=== PATIENT | female | born 1950 | race Caucasian/White ===

== ENCOUNTER 2020-02-28 09:42 | Outpatient (CLI) | payer MEDICARE, MEDICAID, SELFPAY ==
--- NOTE | 2020-02-28 09:51 | MM_ITS ---
WS: [id number] BILATERAL SCREENING DIGITAL MAMMOGRAM WITH CAD HISTORY: SCREENING COMPARISON: 01/29/2019 and 02/13/2017 Bilateral CC and MLO views submitted. Computer aided detection analyzed. Breast composition: There are scattered areas of fibroglandular density. No suspicious masses, microc alcifications or architectural distortion. Benign calcifications centrally in each breast. MM/[place] [id number] IMPRESSION: BI-RADS: 2-Benign FOLLOW UP: 1 Year Follow-up
== END 2020-02-28 09:43 | disposition home or self-care (01) ==
LOC: RADSHAW 09:50
PROVIDERS: PCP Physician Assistant; Visit Provider Physician Assistant
DX: Z12.31 Encounter for screening mammogram for malignant neoplasm of breast (principal)
CPT/HCPCS: 77067

== ENCOUNTER 2020-03-15 13:41 | Outpatient (CLI) | payer MEDICARE, MEDICAID, SELFPAY ==
--- NOTE | 2020-03-15 | XR_ITS ---
WS: [id number] Bone mineral density performed on a Nephera, 03/15/2020 Clinical data: POST MENOPAUSAL Findings: Measurement of the bone mineral density of the left forearm reveal that the radius was 0.725 g/sq cm. Young adult score was -1.7. Measurement of the left hip reveals a bone mineral density of 0.834 g/cm2 with a young adult T score of -1.4. Measurement of the right hip reveals the bone mineral density of 0.794 g/cm2 for young adult T score of -1.7. XR/XR DEXA axial skeleton* [id number] Impression: 1. 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 The bone mineral density has diminished compared to the prior examinations.
== END 2020-03-15 13:42 | disposition home or self-care (01) ==
LOC: RADWPI 13:48
PROVIDERS: PCP Physician Assistant; Visit Provider Physician Assistant
DX: Z78.0 Asymptomatic menopausal state (principal); M85.89 Other specified disorders of bone density and structure, multiple sites
CPT/HCPCS: 77080

== ENCOUNTER 2021-03-28 10:31 | Outpatient (CLI) | payer MEDICARE, MEDICAID, SELFPAY ==
--- NOTE | 2021-03-28 10:39 | MM_ITS ---
WS: [id number] Exam: [place] [id number] Date/Time of Exam: 03/28/2021 10:44 AM Reason For Exam: SCREENING VIEWS: MLO and CC views both breasts. Comparison made with prior exam of 02/13/2017, 01/29/2019 and 02/28/2020. Findings: There was no sign of mass, architectural distortion or suspicious calcification in either breast. Sc attered fibroglandular densities MM/[place] [id number] Impression: BI-RADS: 2-Benign FOLLOW-UP: 1 Year Follow-up This mammogram was also analyzed by the Computer Aided Detection System R2 Imag e Data Coder Operator.
== END 2021-03-28 10:32 | disposition home or self-care (01) ==
LOC: RADSHAW 10:38
PROVIDERS: PCP Physician Assistant; Visit Provider Physician Assistant
DX: Z12.31 Encounter for screening mammogram for malignant neoplasm of breast (principal)
CPT/HCPCS: 77067

== ENCOUNTER 2022-01-18 10:09 | Outpatient (CLI) | payer MEDICARE, MEDICAID, SELFPAY ==
--- NOTE | 2022-01-18 10:23 | MR_ITS ---
WS: [id number] MRI LUMBAR SPINE NONCONTRAST HISTORY: LOW BACK PAIN POTENTIALLY ASSOCIATED W/RADICULOPATHY COMPARISON: Prior lumbar spine radiograph 11/07/2021. TECHNIQUE: Sagittal and axial multisequence imaging is submitted. Marked increase in the thoracic kyphosis. Hardware in the mid to lower thoracic spine. Moderate increase in the lumbar lordosis. L4 anterolisthesis by 2 mm. No marrow edema or fracture. Conus terminates normally at L1. L1-L2: Mild disc bulging with no stenosis. L2-L3: Mild annular disc bulging. Mild encroachment upon the ventral thecal sac. Mild facet and ligam entum flavum hypertrophy. There is very mild bilateral foraminal narrowing. L3-L4: No stenosis. Mild facet arthritis. L4-L5: Mild annular disc bulging with ligamentum flavum hypertrophy and facet arthritis. Encroachment into the central canal. There is a tiny central disc protrusion with annular fissure. Mild central a nd bilateral subarticular recess stenosis. L5-S1: Mild disc space narrowing. Focal area of decreased signal on the T2 sequences extends into the RIGHT subarticular recess. This is contiguous with the disc and most likely represents an extruded d isc extending caudad to the disc space. Disc extends over a length of 1.4 cm and transversely by 0.9 cm. There is significant contact and displacement of the RIGHT S1 nerve root and the thecal sac. Mild osteophytic ridging with mild foraminal narrowing. Bilateral renal cysts. MR/MR lumbar spine wo con* [id number] IMPRESSION: 1. 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 Disc measures 1.4 cm x 0.9 cm and causes displacement of the RIGHT S1 nerve ro ot. 2. Mild central, bilateral subarticular recess stenosis at L4-5. 3. Mild increase in the lumbar lordosis.
== END 2022-01-18 10:10 | disposition home or self-care (01) ==
LOC: RAD 10:11
PROVIDERS: PCP Physician Assistant; Visit Provider Family Medicine
DX: M54.50 Low back pain, unspecified (principal); M51.26 Other intervertebral disc displacement, lumbar region
CPT/HCPCS: 72148

== ENCOUNTER 2022-04-08 10:35 | Outpatient (CLI) | payer MEDICARE, MEDICAID, SELFPAY ==
--- NOTE | 2022-04-08 10:41 | MM_ITS ---
WS: [id number] BILATERAL SCREENING DIGITAL TOMOSYNTHESIS MAMMOGRAM WITH CAD HISTORY: SCREENING COMPARISON: 03/20/2021 and 02/28/2020 Bilateral CC and MLO views with tomosynthesis and synthetic mammography submitted. Computer aided det ection analyzed. Breast composition: There are scattered areas of fibroglandular density. No suspicious masses, microc alcifications or architectural distortion. Benign calcifications in each breast. MM/[place] [id number] IMPRESSION: BI-RADS: 2-Benign FOLLOW UP: 1 Year Follow-up
== END 2022-04-08 10:36 | disposition home or self-care (01) ==
LOC: RAD 10:36
PROVIDERS: PCP Physician Assistant; Visit Provider Physician Assistant
DX: Z12.31 Encounter for screening mammogram for malignant neoplasm of breast (principal)
CPT/HCPCS: 77063; 77067

== ENCOUNTER 2022-08-06 09:47 | Outpatient (CLI) | payer MEDICARE, MEDICAID, SELFPAY ==
--- NOTE | 2022-08-06 | ECG_ITS ---
[facility] Test Date: 2022-08-06 Pat Name: Jennifer Red Department: Room: Gender: Female [employer] Ticket Taker: Jenny Reed : 1950 Requested By: Polina Walton Order Number: [id number] Giovanny MD: Wilfredo Woods M.D. Interpretive Statements NAME OF STUDY: LEXISCAN SESTAMIBI STRESS TEST INDICATION: [Chest Pain, ] Procedure: At the baseline, the blood pressure was 145/84 mmHg with a heart rate of 56 bpm. The electrocardiogram showed normal sinus rhythm, normal axis with normal ST and T's and LVH changes. The Lexiscan was infused over a period of 20 seconds. A total of 0.4 mg of Lexiscan was infused. The stress phase was continued for a total of 5 minutes. Heart rate was at the end of stress phase was 66 bpm and a blood pressure of 134/69 mmHg. The EKG at the peak infusion revealed normal sinus rhythm with no significant ST-T wave changes. Sestamibi was injected 20 seconds after the Lexiscan infusion. Blood pressure at the end of recovery phase was 142/68 mmHg with a heart rate of 68 bpm. Conclusion: 1. Normal EKG response to Lexiscan infusion 2. No Lexiscan induced chest pain or cardiac arrhythmia. 3. Normal blood pressure and heart rate response. 4. Sestamibi/sestamibi perfusion scan pending; see separate report. Electronically Signed On 08-25-2022 13:18:03 WELDER PIPE MAKING by Wilfredo Woods M.D. [email or web address]
[2022-08-06 09:55] VITALS: BMI 25.3
--- NOTE | 2022-08-06 10:20 | NMCV_ITS ---
NM linden perf SPECT r/s* [id number] Jennifer Red Age: 71 Gender: F : 1950 Exam Date: 08/06/2022 11:28 Ordering Phys: Polina Hayden Technologist: HATTIE English Exam Location: [facility] Indications: ANGINA PECTORIS STRESS TEST Please see separate stress test report in [facility] for full findings IMAGE PROTOCOL Rest/Stress 1 Lexiscan Day Radiopharmaceutical Dose (mCi) Administration Site Administered by Rest: Tc-99m 10.9 IV HATTIE English Sestamibi Stress:Tc-99m 32.6 IV Sohna Wells, HATTIE Sestamibi Rest: 06-Aug-2022 60 Discovery 630 Stress: 06-Aug-2022 30 Discovery 630 0.4mg Lexiscan. Supine position only as patient was unable to lay prone. SPECT RESULTS Technical Quality: Excellent Raw Data Analysis: Normal Image Corrections: No attenuation or motion correction applied Summed Stress Score: 0 Summed Rest Score: 0 Summed Difference Score: 0 PERFUSION FINDINGS There is a small in size, fixed perfusion defect in apical lateral wall. 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 No evidence of ischemia. FUNCTIONAL RESULTS (calculated via Gated SPECT) Stress Image LV EF (%): 74 Stress EDV (mL):81 TID: 0.88 Stress ESV (mL):21 FUNCTIONAL FINDINGS: There is normal left ventricular systolic function. IMPRESSIONS 1. 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 No significant degree of ischemia. 2. LV systolic function is normal. Wilfredo Woods MD (Electronically Signed) Final Date: 06 August 2022 16:33 S
[2022-08-06] MEDS: regadenoson 0.4 Mg/5 ml Syringe IVP (12:05)
[2022-08-06 13:17] VITALS: BP 174/91; PULSE 81
== END 2022-08-06 09:48 | disposition home or self-care (01) ==
LOC: CDL 09:49
PROVIDERS: PCP Physician Assistant; Visit Provider Physician Assistant
DX: R07.9 Chest pain, unspecified (principal); I20.9 Angina pectoris, unspecified
CPT/HCPCS: 36415; 78452; 93017; 96374; A9500; J2785

== ENCOUNTER → 2022-09-12 10:00 | Outpatient (BNVA) | payer MEDICARE, MEDICAID, SELFPAY | PROVIDERS: PCP Physician Assistant; Visit Provider Internal Medicine Cardiovascular Disease | DX: R00.2 Palpitations (principal); R06.02 Shortness of breath; I10 Essential (primary) hypertension; E03.9 Hypothyroidism, unspecified; E78.5 Hyperlipidemia, unspecified | CPT/HCPCS: 99204 ==

== ENCOUNTER 2022-10-11 10:46 | Outpatient (CLI) | payer MEDICARE, MEDICAID, SELFPAY ==
--- NOTE | 2022-10-11 06:30 | USCV_ITS ---
Jennifer Red Age: 72 Gender: F : 1950 Exam Date: 10/11/2022 11:38 Ordering Phys: Tory Hughes MD ([email or web address]) Technologist: Exam Location: [facility] [place] Indication: abnormal rythym BP: 130 / 81 HR: 70 Rhythm: Sinus Technical Quality: Good MEASUREMENTS (Male / Female) Normal Values 2D ECHO LV Diastolic Diameter PLAX 3.8 cm 4.2 - 5.9 / 3.9 - 5.3 cm LV Systolic Diameter PLAX 2.1 cm IVS Diastolic Thickness 1.1 cm 0.6 - 1.0 / 0.6 - 0.9 cm IVS Systolic Thickness 1.5 cm LVPW Diastolic Thickness 1.1 cm 0.6 - 1.0 / 0.6 - 0.9 cm LVPW Systolic Thickness 1.3 cm LVOT Diameter 2.0 cm LV Ejection Fraction 2D Teich 77.4 % LV Ejection Fraction MOD 2C 76.3 % LV Ejection Fraction 2C AL 76.6 % LA Diameter 4.3 cm Aorta at Sinotubular Diameter 2.3 cm IVC Diameter 1.9 cm M-MODE Aortic Annulus Diameter 3.1 cm LA Ao Ratio MM 1.5 MV E Point Septal Separation 0.7 cm DOPPLER AV Peak Velocity 155.0 cm/s LVOT Peak Velocity 100.0 cm/s AV Area Cont Eq vti 2.3 cm squared AV Area Cont Eq pk 2.0 cm squared MV E' Velocity 6.0 cm/s TR Peak Velocity 339.0 cm/s TR Peak Gradient 46.0 mmHg RV Acceleration Time 0.2 s FINDINGS Left Ventricle Normal left ventricular cavity size. Mild left ventricular hypertrophy. Normal left ventricular systolic function. No regional wall motion abnormalities. Grade I/IV diastolic dysfunction (abnormal relaxation filling pattern), normal to mildly elevated filling pressures. Left ventricular ejection fraction is estimated at 70 %. Right Ventricle Normal right ventricular size and systolic function. Right Atrium The right atrium is normal in size. Left Atrium Moderately increased left atrial size. Mitral Valve Structurally normal mitral valve. Mild mitral valve regurgitation. Aortic Valve Structurally normal aortic valve without significant sclerosis or stenosis. There is no aortic regurgitation. Tricuspid Valve Structurally normal tricuspid valve without significant stenosis or regurgitation. Pulmonary artery systolic pressure is normal. Pulmonic Valve Pulmonic valve not well visualized. Pericardium Normal pericardium without effusion. Aorta Normal ascending aorta dimension. IVC The inferior vena cava appears normal. CONCLUSIONS Normal left ventricular cavity size. Mild left ventricular hypertrophy. Normal left ventricular systolic function. No regional wall motion abnormalities. Grade I/IV diastolic dysfunction (abnormal relaxation filling pattern), normal to mildly elevated filling pressures. Left ventricular ejection fraction is estimated at 70 %. Moderately increased left atrial size. Structurally normal mitral valve. Mild mitral valve regurgitation. There is no change from the previous study dated 05/17/2014 Dr. Magdaleno Barbosa MD (Electronically Signed) Final Date: 11 October 2022 16:09 S
== END 2022-10-11 10:47 | disposition home or self-care (01) ==
LOC: RAD 10:47
PROVIDERS: PCP Physician Assistant; Visit Provider Internal Medicine Cardiovascular Disease
DX: R06.09 Other forms of dyspnea (principal); I34.0 Nonrheumatic mitral (valve) insufficiency
CPT/HCPCS: 93306

== ENCOUNTER → 2022-11-21 10:46 | Outpatient (BNVA) | payer MEDICARE, MEDICAID, SELFPAY | PROVIDERS: PCP Physician Assistant; Visit Provider Internal Medicine Cardiovascular Disease | DX: R06.02 Shortness of breath (principal); E78.5 Hyperlipidemia, unspecified; E03.9 Hypothyroidism, unspecified; I10 Essential (primary) hypertension; I49.8 Other specified cardiac arrhythmias; Z79.82 Long term (current) use of aspirin | CPT/HCPCS: 99214 ==

== ENCOUNTER 2023-02-04 10:25 | Outpatient (RCR) | payer MEDICARE, MEDICAID, SELFPAY | END 2023-02-28 23:59 | disposition home or self-care (01) | LOC: SPT 10:25 | PROVIDERS: PCP Physician Assistant; Visit Provider Physician Assistant | DX: M51.9 Unspecified thoracic, thoracolumbar and lumbosacral intervertebral disc disorder (principal) | CPT/HCPCS: 97110; 97161 ==

== ENCOUNTER 2023-05-21 11:35 | Outpatient (CLI) | payer MEDICARE, MEDICAID, SELFPAY ==
--- NOTE | 2023-05-21 11:42 | MM_ITS ---
WS: [id number] BILATERAL 3D TOMOSYNTHESIS DIGITAL SCREENING MAMMOGRAPHY WITH CAD CLINICAL INFORMATION: SCREENING HISTORY: Screening mammogram. No current complaints. COMPARISON: 2021 TECHNIQUE: Bilateral CC and MLO views. FINDINGS: Scattered fibroglandular densities bilaterally. No suspicious focal mass, asymmetry, calcifications, or architectural distortion. No evidence of malignancy. Incidental punctate calcifications. IMPRESSION: MM/[place] [id number] BI-RADS: 2-Benign FOLLOW UP: 1 Year Follow-up Recommend return to annual screening mammography.
== END 2023-05-21 11:36 | disposition home or self-care (01) ==
LOC: RAD 11:36
PROVIDERS: PCP Physician Assistant; Visit Provider Physician Assistant
DX: Z12.31 Encounter for screening mammogram for malignant neoplasm of breast (principal)
CPT/HCPCS: 77063; 77067

== ENCOUNTER → 2023-06-11 11:25 | Outpatient (BNVA) | payer MEDICARE, MEDICAID, SELFPAY | PROVIDERS: PCP Physician Assistant; Visit Provider Internal Medicine Cardiovascular Disease | DX: I49.8 Other specified cardiac arrhythmias (principal); R06.02 Shortness of breath; E78.5 Hyperlipidemia, unspecified; I10 Essential (primary) hypertension; E03.9 Hypothyroidism, unspecified | CPT/HCPCS: 99214 ==

== ENCOUNTER → 2023-12-31 10:10 | Outpatient (BNVA) | payer MEDICARE, MEDICAID, SELFPAY | PROVIDERS: PCP Physician Assistant; Visit Provider Internal Medicine Cardiovascular Disease | DX: R00.2 Palpitations (principal); I10 Essential (primary) hypertension; E78.2 Mixed hyperlipidemia; I49.8 Other specified cardiac arrhythmias | CPT/HCPCS: 99213 ==

== ENCOUNTER 2024-06-24 11:45 | Outpatient (CLI) | payer MEDICARE, MEDICAID, SELFPAY ==
--- NOTE | 2024-06-24 11:50 | MM_ITS ---
WS: [id number] BILATERAL SCREENING DIGITAL TOMOSYNTHESIS MAMMOGRAM WITH CAD HISTORY: SCREENING COMPARISON: 05/21/2023, 01/29/2019 Bilateral CC and MLO views with tomosynthesis and synthetic mammography submitted. Computer aided det ection analyzed. Breast composition: There are scattered areas of fibroglandular density. No suspicious masses, microc alcifications or architectural distortion. Scattered calcifications and RIGHT breast asymmetry are st able. MM/MM scr BI tomosynthesis [id number] IMPRESSION: BI-RADS: 2 - Benign. FOLLOW UP: 1 Year Follow-up
== END 2024-06-24 11:46 | disposition home or self-care (01) ==
PROVIDERS: PCP Physician Assistant; Visit Provider Physician Assistant
DX: Z12.31 Encounter for screening mammogram for malignant neoplasm of breast (principal); R92.323 Mammographic fibroglandular density, bilateral breasts; R92.1 Mammographic calcification found on diagnostic imaging of breast
CPT/HCPCS: 77063; 77067

== ENCOUNTER 2024-10-26 09:42 | Outpatient (CLI) | payer OTHER, MEDICAID, SELFPAY ==
--- NOTE | 2024-10-26 09:56 | CT_ITS ---
WS: [id number] CT HEAD TECHNIQUE: Noncontrast CT of the head obtained from the skullbase to the vertex. CLINICAL INFORMATION: HEAD INJURY COMPARISON: None. DLP: 1070.[address] scans at [facility] use at least one of these dose optimization techniques: automated exposure control; mA and/or kV adjustment per patient size (includes targeted exams where dose is matched to clinical indication); or iterative reconstruction. FINDINGS: No evidence of intracranial hemorrhage or mass effect. Ventricular system and basal cisterns are patent. Moderate to advanced small vessel changes with moderate parenchymal volume loss. No extra-axial fluid collections. No evidence of mass or mass effect. Incidental slightly low-lying cerebellar tonsils. Paranasal sinuses and mastoid air cells are well aerated. .Normal visualized soft tissues. CT/CT head wo con* [id number] IMPRESSION: 1. No evidence of intracranial hemorrhage or mass effect. 2. Moderate to advanced small vessel changes. Moderate parenchymal volume loss . 3. No acute intracranial findings.
== END 2024-10-26 09:43 | disposition home or self-care (01) ==
LOC: RAD 09:45
PROVIDERS: PCP Physician Assistant; Visit Provider Physician Assistant
DX: S09.90XA Unspecified injury of head, initial encounter (principal); X58.XXXA Exposure to other specified factors, initial encounter; R93.0 Abnormal findings on diagnostic imaging of skull and head, not elsewhere classified
CPT/HCPCS: 70450